=== PATIENT | female | born 2000 | race Caucasian/White ===

== ENCOUNTER 2024-01-02 08:04 | Day surgery (SDC) | payer BC ==
[~2024-01-02 08:04] MED LIST: HYDROmorphone 0.5 MG/0.5 ML SYRINGE IVP PRN; LACTATED RINGERS 1,000 ML IV SCH; MIDAZOLAM 2 MG/2 ML VIAL IV PRN
[2024-01-02] MEDS: DEXAMETHASONE SOD PHOSPHATE 4 MG/ML 1 ML VIAL IV ONE (08:48)
[2024-01-02] MEDS: ONDANSETRON 4 MG/2 ML VIAL IVP ONE (08:48)
[2024-01-02] MEDS: SCOPOLAMINE 1 MG/72 HR PATCH TRANSDERM ONE (08:48)
[2024-01-02] MEDS: IV FLUID CONTINUATION 1,000 ML IV ONE (08:53)
[2024-01-02] MEDS ORDERED: fentaNYL (PF) 50 MCG/ML 2 ML AMP ONE (09:04)
[2024-01-02] MEDS ORDERED: MIDAZOLAM 2 MG/2 ML VIAL ONE (09:04)
[2024-01-02] MEDS ORDERED: ROCURONIUM 10 MG/ML (5 ML VIAL) IV ONE (09:04)
[2024-01-02] MEDS ORDERED: SUCCINYLCHOLINE CHLORIDE 200 MG/10 ML VIAL IV ONE (09:04)
[2024-01-02] MEDS ORDERED: PROPOFOL 10 MG/ML 20 ML VIAL IV ONE (09:04)
[2024-01-02] MEDS ORDERED: LIDOCAINE 1% INJ 10MG/ML (20 ML MDV) ONE (09:04)
[2024-01-02] MEDS ORDERED: diphenhydrAMINE 50 MG/ML 1 ML VIAL ONE (09:04)
[2024-01-02] MEDS: BUPIVACAINE (PF) 0.25% 30 ML VIAL SQ ONE (09:22)
--- NOTE | 2024-01-02 10:14 | P.OP ---
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 Timeout was taken to confirm correct patient identifiers, correct laterally surgery, and correct procedure. Once all staff in the room were in agreement with the timeout, the patient was induced and placed under general anesthesia. 0.25% Marcaine was injected as a posterior tibial nerve block as well as a circumferential block around the first metatarsal base. The left foot was prepped and draped usual manner. The left foot was exsanguinated and the tourniquet inflated to 250 mmHg. Fluoroscopy was used to identify the location lateral sesamoid. A leo was placed over the skin. The incision was directed over the leo and deepened under the subcutaneous tissue careful to identify, avoid, and retract any neurovascular structures and cauterize any bleeding vessels. Blunt dissection was carried down through the subcutaneous tissue down to level the joint capsule. The lateral sesamoid was palpated. Scalpel was used to carefully excise it from the surrounding soft tissue. The sesamoid was fragmented but it was able to be removed in 2 large pieces. Fluoroscopy was used to confirm the excision as well as an sure that there weren't any remaining fragments. The wound is then thoroughly irrigated with antibiotic saline. The capsule was repaired with 2-0 Vicryl. Subcutaneous closure done with 4-0 Monocryl. And skin closure done with 3-0 nylon. Nonadherent gauze and a dry sterile dressing were applied to the left foot. The tourniquet was released and capillary refill return to all digits on the left foot. The patient tolerated above procedure and anesthesia well. The patient left the operating room to recovery with vital signs stable.
[2024-01-02] MEDS: traMADol 50 MG TAB PO STA (10:59)
== END 2024-01-02 11:46 | disposition home or self-care (01) ==
LOC: OR 08:04
PROVIDERS: ATTEND Podiatrist
DX: I96 Gangrene, not elsewhere classified (principal)
CPT/HCPCS: 28315; 81025; 88305; 88311; J2250; J0330; J1200; J1100; J0690; J2405; J2001; J3010; J2704; J0665

== ENCOUNTER 2024-02-04 09:06 | Day surgery (SDC) | payer BC ==
[2024-02-04] MEDS: IV FLUID CONTINUATION 1,000 ML IV ONE (09:43)
[2024-02-04] MEDS: LACTATED RINGERS 1,000 ML IV SCH (10:09)
[2024-02-04] MEDS ORDERED: PROPOFOL 10 MG/ML 20 ML VIAL IV ONE (10:35)
--- NOTE | 2024-02-04 10:46 | P.PCN ---
Date of Procedure: 02/04/24 Procedure(s) Performed: BRIEF HISTORY: Patient is a 23-year-old pleasant white female scheduled for an elective colonoscopy as a part of evaluation of change in bowel habits for the last 2 years duration. She was having chronic diarrhea with 1.7 from 4 to 5 days until dislodging consistency but no blood or mucus in the stool. PROCEDURE PERFORMED: Colonoscopy with random biopsies. PREOPERATIVE DIAGNOSIS: Chronic diarrhea of 2 years duration. IV sedation per Anesthesia. PROCEDURE: After informed consent was obtained, the patient, was brought into the endoscopy unit. IV sedation was administered by Anesthesia under continuous monitoring. Digital rectal examination was normal. Initially the Olympus CF-160 flexible video colonoscope was then inserted in the rectum, gradually advanced into the cecum without any difficulty. Careful examination was performed as the scope was gradually being withdrawn. Ileocecal valve and the appendiceal orifice were visualized and appeared normal. Prep was excellent. Mucosa of the cecum, ascending colon, transverse colon, descending colon, sigmoid colon, and rectum appeared normal. Biopsies were done from ascending and descending colon to rule out microscopic/collagenous colitis. Retroflexion was performed in the rectum and no lesions were seen. The patient tolerated the procedure well. IMPRESSION: Normal-appearing colon from rectum to cecum no evidence of colorectal neoplasia. RECOMMENDATIONS: Findings of this examination were discussed with the patient as well as her family. She was advised to follow-up with the biopsy results. Advised to use [id number] Imodium as needed for chronic diarrhea. Follow- up in the office if she has worsening symptoms.
== END 2024-02-04 11:33 | disposition home or self-care (01) ==
LOC: ORWHC2ENDO 09:06
PROVIDERS: ATTEND Internal Medicine Gastroenterology
DX: R19.7 Diarrhea, unspecified (principal); K21.9 Gastro-esophageal reflux disease without esophagitis; J45.909 Unspecified asthma, uncomplicated; Z91.09 Other allergy status, other than to drugs and biological substances; Z79.899 Other long term (current) drug therapy
CPT/HCPCS: 81025; 88305; 45380; J2704